=== PATIENT | female | born 1940 | race Caucasian/White ===

== ENCOUNTER 2023-12-17 19:11 | Inpatient (IN) | payer MEDICARE, OTHER ==
[~2023-12-17] VITALS: Ht 152.4 cm; Wt 59.9 kg
[2023-12-17] MEDS ORDERED: XARELTO20 MG PO (19:32)
[2023-12-17] MEDS ORDERED: OMEP20ER PO (19:33)
[2023-12-17 19:53] LABS: Source, Urine Clean Catch
[2023-12-17 19:54] LABS: BASOPHILS ABSOLUTE AUTO 0.01 K/mm3 (0.00-0.23); BASOPHILS PERCENT AUTO 0 % (0-2); EOSINOPHILS ABSOLUTE AUTO 0.02 K/mm3 (0.00-0.68); EOSINOPHILS PERCENT AUTO 0 % (0-6); Hematocrit 28.8 % (33.0-51.0); Hemoglobin 8.4 g/dL (11.5-16.0); IMMATURE GRAN ABSOLUTE AUTO 0.08 K/mm3 (0.00-0.10); IMMATURE GRAN PERCENT AUTO 1 % (0-1); LYMPHOCYTES ABSOLUTE AUTO 0.88 K/mm3 (0.84-5.20); LYMPHOCYTES PERCENT AUTO 9 % (21-46); MONOCYTES ABSOLUTE AUTO 1.32 K/mm3 (0.16-1.47); MONOCYTES PERCENT AUTO 14 % (4-13); Mean Corpuscular HGB 20.8 pg (26.0-34.0); Mean Corpuscular HGB Conc 29.2 g/dL (31.5-36.5); Mean Corpuscular Volume 71 fL (80-100); Mean Platelet Volume 10.7 fL (9.1-12.4); NEUTROPHILS ABSOLUTE AUTO 7.32 K/mm3 (1.96-9.15); NEUTROPHILS PERCENT AUTO 76 % (41-73); NRBC Auto 4.2 /100 WBC (0.0-0.2); Platelet Count 271 K/mm3 (150-400); RDW Coefficient Variation 17.1 % (11.7-14.2); Red Blood Cell Count 4.04 M/mm3 (3.80-5.20); White Blood Cell Count 9.63 K/mm3 (4.00-11.30)
[2023-12-17 19:55] LABS: Appearance, Urine Cloudy (Clear); Bilirubin, Urine Neg (Neg); Blood, Urine 2+ (Neg); Color, Urine Yellow (P-Yellow); Glucose Qualitative, Urine Neg (Neg); Ketones, Urine Neg (Neg); Leukocyte Esterase, Urine 2+ (Neg); Nitrite, Urine Neg (Neg); Protein, Urine 2+ (Neg); Specific Gravity, Urine 1.025 (1.003-1.022); Urobilinogen, Urine 1+ (Normal)
[2023-12-17] MEDS ORDERED: POTA8 PO (20:01)
[2023-12-17 20:05] LABS: Bacteria Many /hpf; White Blood Cells, Urine 25-50 /hpf (0-5)
[2023-12-17 20:06] LABS: Amorphous Light (0-Heavy); Squamous Epithelial Cells Rare /hpf (Few)
[2023-12-17 20:10] LABS: Albumin, Blood 2.5 g/dL (3.4-5.0); Albumin/Globulin Ratio 0.5 (0.8-1.8); Bilirubin, Total 3.5 mg/dL (0.1-1.0); Bun/Creatinine Ratio 24.8 (12.0-20.0); Calcium, Blood 8.3 mg/dL (8.5-10.1); Creatinine, Blood 1.13 mg/dL (0.40-1.00); Globulin, Blood 4.8 g/dL (2.2-4.0); Total Protein, Blood 7.3 g/dL (6.4-8.2)
[2023-12-17] MEDS ORDERED: CefTRIAXone Sodium 1,000 MG in NS 100 ML IV ONE (20:30)
[2023-12-17] MEDS ORDERED: NS 1,000 ML IV SCH (20:30)
[2023-12-18] VITALS (40 sets, daily range): BP systolic 91–134; BP diastolic 54–111
[2023-12-18] MEDS ORDERED: NEBI5 PO (01:36)
[2023-12-18] MEDS ORDERED: XARELTO15 MG PO (01:36)
[2023-12-18 01:37] LABS: Bilirubin, Direct 1.4 mg/dL (0.0-0.3)
[2023-12-18] MEDS ORDERED: FURO20 PO (01:37)
[2023-12-18] MEDS ORDERED: FAMO20 PO (01:37)
[2023-12-18] MEDS ORDERED: B-12500 MC2 PO (01:37)
[2023-12-18] MEDS ORDERED: POTA10T PO (01:38)
[2023-12-18] MEDS ORDERED: ERGO50000 PO (01:38)
[2023-12-18] MEDS ORDERED: Sodium Chloride 3% 500 ML IV SCH (01:45)
[2023-12-18] MEDS ORDERED: Sodium Chloride 3% 200 ML IV SCH (01:45)
[2023-12-18 02:04] LABS: Bicarbonate Venous 22.4 mmol/L (24.0-30.0); PCO2 Venous 41.6 mmHg (38-42); pH Blood Venous 7.36 (7.34-7.37)
[2023-12-18 02:28] LABS: Calcium, Blood 7.7 mg/dL (8.5-10.1); Creatinine, Blood 1.04 mg/dL (0.40-1.00); Potassium, Blood 4.6 mmol/L (3.5-5.5)
[2023-12-18] MEDS ORDERED: Ergocalciferol 50000 Intn'l Units PO SCH (03:55)
[2023-12-18] MEDS ORDERED: Famotidine 20 MG Tab PO PRN (03:55)
[2023-12-18] MEDS ORDERED: NS 500 ML IV SCH (04:00)
[2023-12-18 04:33] LABS: Bun/Creatinine Ratio 25.9 (12.0-20.0); Calcium, Blood 7.7 mg/dL (8.5-10.1); Creatinine, Blood 1.08 mg/dL (0.40-1.00); Potassium, Blood 4.8 mmol/L (3.5-5.5)
[2023-12-18] MEDS ORDERED: Azithromycin 500 MG in NS 250 ML IV SCH (05:00)
--- NOTE | 2023-12-18 06:23 | NUR ---
SHIFT SUMMARY NO ACUTE EVENTS T/O NIGHT. PT DROWSY AND A/O TO SELF AND FAMILY. FOLLOWS SIMPLE COMMANDS. PER PT'S DAUGHTER, PT IS NORMALLY A/O X 4 AND NEEDS MINIMAL ASSIST WITH CARE. 3% NS AT 30ML/HR. HELD WHILE GIVING 500ML BOLUS OF NS PER PHARM. DR LEARY CALLED REGARDING SODIUM LEVEL. ORDER TO RESTART GTT FOR ONE HOUR AND THEN STOP UNTIL LAB RESULTS ARE BACK. VSS, AFIB RATE 70-80'S. BP STABLE. ON RA. PURE WICK IN PLACE. YELLOW JOVANNY OUTPUT. DAUGHTER REMAINS AT BEDSIDE.
[2023-12-18 06:46] LABS: Bun/Creatinine Ratio 28.4 (12.0-20.0); Calcium, Blood 7.7 mg/dL (8.5-10.1); Creatinine, Blood 1.02 mg/dL (0.40-1.00); Potassium, Blood 4.6 mmol/L (3.5-5.5)
--- NOTE | 2023-12-18 07:40 | NUR ---
CARE ASSUMPTION DURING BEDSIDE SHIFT REPORT Shad ROBLES RN THE PT IS LYING IN BED SLEEPING COMFORTABLY. PT'S FAMILY AT BEDSIDE. PT'S MONITOR SHOWING AFIB 80'S-90'S. BP STABLE W MAP >65. SPO2 >94% ON RM AIR. PT APPEARS COMFORTABLE AND WAS LEFT TO SLEEP. 3% NS ON STAND-BY PER NOC RN UNTIL FURTHER INSTRUCTIONS. PT'S FAMILY DENYING ANY FURTHER NEEDS AT THIS TIME.
[2023-12-18] MEDS ORDERED: Sodium Bicarbonate 650 MG Tab PO SCH (08:00)
[2023-12-18] MEDS ORDERED: NS 1,000 ML IV SCH (08:00)
[2023-12-18] MEDS ORDERED: Carvedilol 3.125 MG Tab PO SCH (08:00)
[2023-12-18 08:16] LABS: Albumin, Blood 2.2 g/dL (3.4-5.0); Albumin/Globulin Ratio 0.5 (0.8-1.8); Bilirubin, Total 3.2 mg/dL (0.1-1.0); Bun/Creatinine Ratio 26.5 (12.0-20.0); Calcium, Blood 7.8 mg/dL (8.5-10.1); Creatinine, Blood 1.02 mg/dL (0.40-1.00); Globulin, Blood 4.5 g/dL (2.2-4.0); Potassium, Blood 4.6 mmol/L (3.5-5.5); Total Protein, Blood 6.7 g/dL (6.4-8.2)
[2023-12-18] MEDS ORDERED: Lactated Ringer's 1,000 ML IV ONE (09:20)
[2023-12-18 12:45] LABS: Albumin, Blood 2.1 g/dL (3.4-5.0); Albumin/Globulin Ratio 0.5 (0.8-1.8); Bun/Creatinine Ratio 25.9 (12.0-20.0); Calcium, Blood 7.7 mg/dL (8.5-10.1); Creatinine, Blood 1.08 mg/dL (0.40-1.00); Globulin, Blood 4.4 g/dL (2.2-4.0); Potassium, Blood 4.7 mmol/L (3.5-5.5); Total Protein, Blood 6.5 g/dL (6.4-8.2)
[2023-12-18] MEDS ORDERED: Sodium Bicarb 8.4% 1 MEQ/ML 50 ML Vial IV ONE (13:20)
[2023-12-18] MEDS ORDERED: Rivaroxaban 10 MG Tab PO SCH (18:00)
--- NOTE | 2023-12-18 18:29 | NUR ---
DAY SHIFT SUMMARY PT HAS REMAINED DROWSY AND CONFUSED THIS SHIFT BUT DID APPEAR TO BECOME MORE AWAKE T/O THE DAY. PT FOLLOWING COMMANDS BUT DOES NOT KNOW WHERE SHE IS OR WHY SHE IS HERE. PT'S MONITOR SHOWING AFIB 80'S-90'S THIS SHIFT. BP STABLE W MAP >65 THIS SHIFT. PT'S LACTIC ACID PEAKED AT 5.9 THIS AM SO PROVIDER CONTACTED AND ORDER FOR 1L LR BOLUS GIVEN. NS INFUSING AT 75ML/HR THIS SHIFT BUT DC'D LATE THIS AFTERNOON NC DR. EDWARDS AFTER LACTIC ACID CAME DOWN TO 3.5. PT RECIEVED 50 MEQ BICARB PUSH THIS SHIFT. PT AFEBRILE THIS SHIFT. PT HAD ONE INCONTINENT VOID THIS SHIFT AND 300 ML DARK JOVANNY VOID THIS SHIFT W BLADDER SCAN SHOWING 72ML AT 1830. PT MAINTAINING SPO2 >92% ON 2L NC. PT BECOMES ANXIOUS WHEN LAID FLAT APPEARING TO BECOME ORTHOPNEIC AT TIMES THO MAINTAINING SPO2 >90%. PT HAD ECHO THIS SHIFT BUT NO RESULTS IN MEDITECH. PT NPO THIS SHIFT DUE TO MENTATION THOUGH SHE WAS ABLE TO WAKE UP AND TAKE PO MEDS W/O DIFFICULTY. WILL REPORT TO ONCOMING RN.
[2023-12-18] MEDS ORDERED: CefTRIAXone Sodium 1,000 MG in NS 100 ML IV SCH (21:00)
[2023-12-18] MEDS ORDERED: Acetaminophen 500 MG Tab PO PRN (22:05)
--- NOTE | 2023-12-18 23:03 | NUR ---
ASSUMED CARE ASSUMED CARE AT 1900. PT DROWSY BUT A/O X 2. UNABLE TO STATE BUT KNOWS HER FAMILY AT BEDSIDE. FOLLOWS SIMPLE COMMANDS. REQUIRES MODERATE AMOUNT OF STIMULI TO WAKE UP FULLY. ABLE TO TAKE PO MEDS AND ATE A PUDDING PROVIDED BY DAUGHTER. NO S/S OF ASPIRATION NOTED WITH BEDSIDE SWALLOW. VSS, BP SOFT AT TIMES. AFIB RATE 60-70'S. ON 2L NC WITH SPO2 GREATER THAN 95%. TITRATED TO RA AND SPO2 GREATER THEN 92%. PUREWICK IN PLACE. FAMILY AT BEDSIDE.
[2023-12-19] VITALS (40 sets, daily range): BP systolic 73–118; BP diastolic 41–86
[2023-12-19 03:46] LABS: Bun/Creatinine Ratio 27.5 (12.0-20.0); Calcium, Blood 7.9 mg/dL (8.5-10.1); Creatinine, Blood 1.02 mg/dL (0.40-1.00); Potassium, Blood 4.3 mmol/L (3.5-5.5)
--- NOTE | 2023-12-19 05:45 | NUR ---
SHIFT SUMMARY NO ACUTE EVENTS T/O NIGHT. PT DROWSY BUT AWAKENS TO VERBAL STIMULI. VSS. SPO2 DOWN TO 85% WHEN ASLEEP ON RIGHT SIDE ON RA. 2L VIA NC IN PLACE. DAUGHTER REMAINS AT BEDSIDE. PUREWICK IN PLACE. CALL LIGHT IN REACH. CALL LIGHT IN REACH.
[2023-12-19] MEDS ORDERED: Metoprolol Succinate 25 MG TABCR PO SCH (09:00)
[2023-12-19] MEDS ORDERED: NS 1,000 ML IV ONE ×2 (10:50)
--- NOTE | 2023-12-19 11:16 | NUR ---
PROVIDER CONTACT PT BECOMING INCREASINGLY HYPOTENSIVE SO CALLED AND NOTIFIED OF CHANGE. 1L NS BOLUS ORDERED STAT.
[2023-12-19] MEDS ORDERED: Midodrine 5 MG Tab PO SCH (12:05)
--- NOTE | 2023-12-19 14:31 | NUR ---
[id number] SHIFT SUMMARY PT BEGAN SHIFT VERY LETHARGIC AND CONFUSED. PT'S SKIN COLD W POOR CAP REFILL AND HER BP TRENDING DOWN THIS SHIFT SO PROVIDER CONTACTED AND 1L NS BOLUS WELL MIDODRINE STARTED WHICH IMPROVED PT'S BP AND OVERALL MENTATION. PT MUCH MORE ALERT THIS AFTERNOON AND IS NOW TOLERATING PO INTAKE. PT'S MONITOR SHOWING AFIB 60'S-70'S THIS SHIFT. SPO2 >92% ON RM AIR. PT AFEBRILE. PT W 300 ML JOVANNY URINE OUTPUT THIS SHIFT. WHILE PT'S BP WAS LOW PALLIATIVE CARE MET W FAMILY DISCUSSING THE PT'S CONDITION, AT THIS TIME THE PT'S DAUGHTER JYOTI REQUESTING THAT THE PT BE MADE DNR CODE STATUS, THIS WAS RELAYED TO DR. EDWARDS AND PT'S CODE STATUS CHANGED TO DNR. DR. GOMEZ CONSULTED THIS SHIFT BY DR. EDWARDS. DR. GOMEZ GIVING ORDERS FOR 1L FLUID RESTRICTION AND REPEAT LABS. PTMADE PCU STATUS AND WILL BE TRANSFERED TO PCU 20 WHEN THE RM IS CLEAN. WILL REPORT TO RECIEVING BALDEMAR Ramos RN.
--- NOTE | 2023-12-19 15:34 | NUR ---
Case Conference: Met with family members at bedside this morning; specifically pt's daughter Ivy and pt's brother. Ivy spoke to several family members by phone, and decision was made to change pt's code status from FULL to DNR.
--- NOTE | 2023-12-19 16:36 | NUR ---
FAMILY CONTACT THIS RN AND [employer]ER JULIO CÉSAR Mcdowell SPOKE TO THE PT'S SON BRANDIE ON THE PHONE REGARDING HIS CONCERNS W INFORMATION THAT WAS RELAYED TO HIM TODAY BY FAMILY ABOUT THE PT'S CARE AND HIS CONCERNS ABOUT DR. EDWARDS. THIS RN EXPLAINED HOW THE PT'S CLINICAL CONDITION CHANGED RAPIDLY THIS SHIFT AND WHY PALLIATIVE CARE WAS CONSULTED RESULTING IN THE PT'S CODE STATUS CHANGING TO A DNR. BRANDIE WAS UPDATED ON FURTHER TREATMENT PLAN AND HE THANKED US FOR THE UPDATES BUT DOES WANT A NEW PROVIDER ON THE PT'S CASE. PT'S DAUGHTER JYOTI GIVEN PRINTED INFORMATION ON HEART FAILURE, COREG, MIDODRINE, HYPOTENSION AND UROSEPSIS TO HELP PROVIDE EDUCATION ON SOME OF THE TOPICS THEY HAD QUESTIONS WITH. PT'S FAMILY EXPRESSING GRATITUDE FOR INFORMATION AND CARE. DR. CAMPBELL CALLED AND INFORMED OF PT'S FAMILYS DESIRE FOR NEW PROVIDER.
--- NOTE | 2023-12-19 18:18 | NUR ---
SHIFT SUMMARY/PT ARRVIAL... PT ARRIVED TO THE UNIT APROX 1700. PT'S VS STABLE. PT'S FAMILY AT THE BEDSIDE. THE PT WAS SLEEPY AND RELAXED. REPORT FROM NATHAN MCDERMOTT PRIOR TO PT TRANSFER TO PCU. CALL LIGHT IN REACH WILL CONTINUE TO MONITOR UNTIL REPORT IS GIVEN TO ONCOMING RN.
[2023-12-19] MEDS ORDERED: Ondansetron HCl 2 MG / ML 2ML Vial IV PRN (18:45)
[2023-12-19 19:04] LABS: Albumin, Blood 2.2 g/dL (3.4-5.0); Anion Gap 9 mmol/L (3-11); Blood Urea Nitrogen 27 mg/dL (8-24); CO2, Blood 26 mmol/L (21-32); Calcium, Blood 8.5 mg/dL (8.5-10.1); Chloride, Blood 97 mmol/L (98-108); Glomerular Filtration Rate 56 (60-); Glucose, Blood 97 mg/dL (70-99); Phosphorus, Blood 2.8 mg/dL (2.5-4.9); Potassium, Blood 4.2 mmol/L (3.5-5.5); Sodium, Blood 128 mmol/L (136-145)
[2023-12-19 19:55] LABS: Osmolality, Serum 271 mos/KG (275-300)
[2023-12-19] MEDS ORDERED: Sodium Chloride 1 GM TAB PO SCH (21:00)
[2023-12-20 03:46] VITALS: BP 100/70
--- NOTE | 2023-12-20 03:55 | NUR ---
Shift summary- Amaya had an uneventful night. She started the shift with some mild nausea when trying to eat some soup and was given IV zofran. This helped. When labs were checked she was started on PO Sodium tablets which activated her nausea again, but it quickly subsided without the use of any antiemetics. She rested throughout the whole night, and used the purwick during the night with fair output. Fluid restriction was maintained during shift- as she was not intaking much due to her ongoing nausea and fatigue. Daughter stayed overnight in room to ease patients' anxiety and unfamiliar situation. Patient only oriented to self when asked orientation questions, unsure of where she was, what month it was, or who the president is currently.
[2023-12-20 04:06] LABS: Hematocrit 32.1 % (33.0-51.0); Hemoglobin 8.8 g/dL (11.5-16.0)
[2023-12-20 04:31] LABS: Albumin, Blood 2.1 g/dL (3.4-5.0); Anion Gap 13 mmol/L (3-11); Blood Urea Nitrogen 26 mg/dL (8-24); Bun/Creatinine Ratio 26.9 (12.0-20.0); CO2, Blood 21 mmol/L (21-32); Chloride, Blood 98 mmol/L (98-108); Creatinine, Blood 0.97 mg/dL (0.40-1.00); Glomerular Filtration Rate 58 (60-); Glucose, Blood 78 mg/dL (70-99); Magnesium, Blood 2.2 mg/dL (1.6-2.4); Phosphorus, Blood 2.7 mg/dL (2.5-4.9); Potassium, Blood 4.3 mmol/L (3.5-5.5); Sodium, Blood 128 mmol/L (136-145); Thyroid Stimulating Hormone 0.267 uIU/mL (0.360-4.800); Uric Acid, Blood 6.9 mg/dL (2.6-6.0)
[2023-12-20 07:33] VITALS: BP 118/67
--- NOTE | 2023-12-20 07:50 | NUR ---
Bedside report from Anahi MCDERMOTT and resident RN. Pt's Daughter Elise and son Papito are at the bedside. Pt awakens easily, able to state that she is in the hospital, and recognizes her family, but states the year is 19--. When prompted for the year "20..." she cannot complete it correctly. She appears sleepy, frail. Daughter states that she did not have good appetite, possibly due to the severe nausea and vomiting she had before the admission. NOc shift reports medicating the pt for nausea last night with relief. Pt does not have any complaints of pain or nausea this morning. Noted some swelling of her left arm, right hand, and pitting edema bilaterally of lower legs. Fine crackles heard on the right side of lungs, posteriorly. Daughter states Dr. Slaughter was here this morning. Noted new order for Lasix increased to 20 mg BID. Pt does not appear to have any respiratory distress, although she is tachypneic at 22 /min. Otherwise V/S are stable.
[2023-12-20] MEDS ORDERED: Furosemide 10 MG / ML 2ML Vial IV SCH ×2 (09:00)
[2023-12-20] MEDS ORDERED: Potassium Chloride 10 Meq Tablet SA PO SCH ×2 (09:00)
[2023-12-20] MEDS ORDERED: Furosemide 20 MG Tab PO SCH (09:00)
[2023-12-20] MEDS ORDERED: Azithromycin 500 MG in NS 250 ML IV SCH (09:00)
[2023-12-20 12:41] VITALS: BP 120/74
--- NOTE | 2023-12-20 14:10 | NUR ---
Pt is sitting up in bed, ate a few bites of food, per daughter Elise. Elise states "she is mad at me because I made her eat". Pt alert, oriented x 2. Pt does not give any reason for not wanting to eat. Elise states pt does not have nausea/vomiting. Pt appears to be uninvolved in conversation,except when responding to direct questions and following directions cooperatively. Medical records requested from [facility], by fax.
[2023-12-20 15:30] VITALS: BP 123/69
[2023-12-20] MEDS ORDERED: Darbepoetin Alfa in Polysorbat 25 MCG/0.42 ML Syringe SC SCH (16:00)
[2023-12-20 16:45] LABS: Potassium, Blood 3.9 mmol/L (3.5-5.5)
--- NOTE | 2023-12-20 18:09 | NUR ---
Call to Dr. Slaughter the results of NA and K blood levels. No new orders receivded.
[2023-12-20 21:07] VITALS: BP 128/72
[2023-12-20 23:19] VITALS: BP 112/61
[2023-12-21] VITALS (8 sets, daily range): BP systolic 97–128; BP diastolic 52–85
--- NOTE | 2023-12-21 05:04 | NUR ---
Shift Summary- Amaya had a relatively good night. She was able to swallow all of her medications this evening- including her xarelto from the previous shift. Unfortunately the purwick was not properly attached from the previous shift and Amaya was left saturated in urine so a large amount of urine was un-accounted for. Once the purwick was re-attached and resumed properly, great output was accounted for. Amaya was given a bed bath and full linen change in the evening and rested comfortably the remainder of the night. Vitals stable throughout. No episodes of nausea noted throughout.
[2023-12-21 05:06] LABS: BASOPHILS ABSOLUTE AUTO 0.04 K/mm3 (0.00-0.23); BASOPHILS PERCENT AUTO 0 % (0-2); EOSINOPHILS ABSOLUTE AUTO 0.11 K/mm3 (0.00-0.68); EOSINOPHILS PERCENT AUTO 1 % (0-6); Hemoglobin 10.2 g/dL (11.5-16.0); IMMATURE GRAN ABSOLUTE AUTO 0.11 K/mm3 (0.00-0.10); IMMATURE GRAN PERCENT AUTO 1 % (0-1); LYMPHOCYTES ABSOLUTE AUTO 1.67 K/mm3 (0.84-5.20); LYMPHOCYTES PERCENT AUTO 18 % (21-46); MONOCYTES ABSOLUTE AUTO 1.54 K/mm3 (0.16-1.47); MONOCYTES PERCENT AUTO 17 % (4-13); Mean Corpuscular HGB 20.7 pg (26.0-34.0); Mean Corpuscular HGB Conc 29.1 g/dL (31.5-36.5); Mean Corpuscular Volume 71 fL (80-100); Mean Platelet Volume 9.7 fL (9.1-12.4); NEUTROPHILS ABSOLUTE AUTO 5.61 K/mm3 (1.96-9.15); NEUTROPHILS PERCENT AUTO 62 % (41-73); NRBC ABSOLUTE 0.41 K/mm3 (0.00-0.02); NRBC Auto 4.5 /100 WBC (0.0-0.2); Platelet Count 279 K/mm3 (150-400); RDW Coefficient Variation 17.2 % (11.7-14.2); Red Blood Cell Count 4.93 M/mm3 (3.80-5.20); White Blood Cell Count 9.08 K/mm3 (4.00-11.30)
[2023-12-21 05:40] LABS: Albumin, Blood 2.2 g/dL (3.4-5.0); Albumin/Globulin Ratio 0.5 (0.8-1.8); Bilirubin, Total 1.5 mg/dL (0.1-1.0); Bun/Creatinine Ratio 24.3 (12.0-20.0); Calcium, Blood 8.3 mg/dL (8.5-10.1); Creatinine, Blood 1.07 mg/dL (0.40-1.00); Globulin, Blood 4.7 g/dL (2.2-4.0); Magnesium, Blood 2.1 mg/dL (1.6-2.4); Phosphorus, Blood 3.5 mg/dL (2.5-4.9); Potassium, Blood 3.6 mmol/L (3.5-5.5); Total Protein, Blood 6.9 g/dL (6.4-8.2)
[2023-12-21] MEDS ORDERED: Ergocalciferol 50000 Intn'l Units PO SCH (09:00)
--- NOTE | 2023-12-21 09:33 | NUR ---
Pt was alert at time of bedside report; oriented to person, place, and family. Refusing to eat breakfast. appears sleepy, weak.
--- NOTE | 2023-12-21 09:56 | NUR ---
Pt took oral meds with Nepro. Call to [facility] to follow up on records request which was faxed yesterday.
--- NOTE | 2023-12-21 11:25 | NUR ---
11:00 VITALS RECORDED DIRECTLY AFTER PHYSICAL THERAPY EVAL, PT RETURNED TO LYING POSITION, PT HYPOTENSIVE AND REPORTED DIZZYNESS WHILE SITTING, BUT RESOLVED ONCE LYING. COMPRESSION SOCKS APPLIED TO BLE.
--- NOTE | 2023-12-21 14:36 | NUR ---
Pt was awakened for 1400 meds. She is very quiet, slow to respond, very weak. Struggles to drink from a small cup and to last picker pills from the cup. Family at bedside.
[2023-12-21] MEDS ORDERED: CefTRIAXone 1000 MG Vial ONE (20:51)
[2023-12-21] MEDS ORDERED: NS 100 ML IV ONE (20:51)
[2023-12-22 05:13] LABS: Bun/Creatinine Ratio 21.1 (12.0-20.0); Calcium, Blood 8.3 mg/dL (8.5-10.1); Creatinine, Blood 0.95 mg/dL (0.40-1.00); Potassium, Blood 3.2 mmol/L (3.5-5.5)
[2023-12-22 05:20] VITALS: BP 114/69
--- NOTE | 2023-12-22 05:28 | NUR ---
Shift summary- Nan much more alert this shift. Able to join in on coversation, express her needs and wants. She did not want to take her Midodrine medication this evening, but her family member spoke to her, and when this RN circled back around, Amaya agreed to taking the medication. She stayed on 1L of oxygen all throughout the night. Maintained good urine output with the purwick. At shift change the purwick was not properly hooked up and Amaya was incontinent of urine- this caused for one incontinent episode- otherwise all urine output was accounted for and measured. Amaya states she is breathing better, and edema on legs is much improved with the tedhose.
[2023-12-22] MEDS ORDERED: Potassium Chloride 20 MEQ TabCR PO ONE (09:00)
[2023-12-22] MEDS ORDERED: Furosemide 10 MG / ML 2ML Vial IV SCH (09:00)
[2023-12-22 09:03] VITALS: BP 125/73
--- NOTE | 2023-12-22 09:54 | NUR ---
The pt is much more alert today, and more conversant. She is having some confusion. Son at bedside that this is like what she has been having intermittently as of late. She is definitely much brighter than she has been the past 2 days, and the son concurrs. She had a better appetite today, but with new dentures she is saying that "I'm not sure why I can't eat" and seems confused by the new sensation of eating solid food with dentures. She has just got them within the last 2 weeks. She is taking medications with ensure and chocolate pudding without difficulty. Lung sounds are clear today, bowel tones active, and peripher edema seems slightly improved.
[2023-12-22] MEDS ORDERED: Sacubitril/Valsartan 24 MG-26 MG Tab PO SCH (11:00)
--- NOTE | 2023-12-22 11:45 | NUR ---
OOB TO CHAIR during PT session. Lift sheet under pt in recliner as needed for transfer back to bed later. Daughter Elise and brother Octaviano at the bedside.
[2023-12-22 13:32] VITALS: BP 92/70
[2023-12-22 16:19] VITALS: BP 119/95
--- NOTE | 2023-12-22 16:19 | NUR ---
Amaya continues to make small improvements; she currently has a SNF recommendation, and family is planning on her completing rehab locally before returning home to [place]. The patient is [place], and appears confused during our visit today. However, her health has improved since she was initially hospitalized, and the family is hopeful that she will be able to travel home to [place].
--- NOTE | 2023-12-22 16:53 | NUR ---
Telephone report given to BALDEMAR Marie. pt transferred from the recliner chair to the bed, using sling lift. Attends were checked, pericare given, and purewick changed. Family accompanied us to transfer the pt to room 309.
--- NOTE | 2023-12-22 16:58 | NUR ---
PATIENT AND FAMILY TO ROOM, PATIENT RESTING, RESPS EVEN AND NON LABORED, DAUGHTER TO STAY THE NIGHT, HELPFUL WITH CARE, BEDALARM ON
[2023-12-22] MEDS ORDERED: NS 100 ML IV ONE (19:21)
[2023-12-22] MEDS ORDERED: CefTRIAXone 1000 MG Vial ONE (19:22)
[2023-12-22 20:56] VITALS: BP 103/70
[2023-12-22] MEDS ORDERED: NS 250 ML IV PRN (22:35)
--- NOTE | 2023-12-23 04:27 | NUR ---
SHIFT SUMMARY PATIENT HAD NO ACUTE CHANGES. AXOX 2 SELF AND FAMILY. [place] AND BEDREST WITH CONFUSION. PIVS INTACT. IV ABX INFUSED. PUREWICK IN PLACE. DENIES CHEST PAIN, SOB, AND N/V. VSS/AFEBRILE. SON STAYED OVERNIGHT. CALL LIGHT IN REACH. BED IN LOWEST POSITION AND ALARM ACTIVATED. WILL CONTINUE TO MONITOR UNTIL DAY SHIFT NURSE ASSUMES CARE.
[2023-12-23 04:36] VITALS: BP 98/77
[2023-12-23 05:15] LABS: BASOPHILS ABSOLUTE AUTO 0.04 K/mm3 (0.00-0.23); BASOPHILS PERCENT AUTO 0 % (0-2); EOSINOPHILS ABSOLUTE AUTO 0.07 K/mm3 (0.00-0.68); EOSINOPHILS PERCENT AUTO 1 % (0-6); Hematocrit 39.4 % (33.0-51.0); Hemoglobin 10.8 g/dL (11.5-16.0); IMMATURE GRAN ABSOLUTE AUTO 0.07 K/mm3 (0.00-0.10); IMMATURE GRAN PERCENT AUTO 1 % (0-1); LYMPHOCYTES ABSOLUTE AUTO 2.23 K/mm3 (0.84-5.20); LYMPHOCYTES PERCENT AUTO 24 % (21-46); MONOCYTES ABSOLUTE AUTO 1.76 K/mm3 (0.16-1.47); MONOCYTES PERCENT AUTO 19 % (4-13); Mean Corpuscular HGB 20.2 pg (26.0-34.0); Mean Corpuscular HGB Conc 27.4 g/dL (31.5-36.5); Mean Corpuscular Volume 74 fL (80-100); Mean Platelet Volume 9.8 fL (9.1-12.4); NEUTROPHILS ABSOLUTE AUTO 4.99 K/mm3 (1.96-9.15); NEUTROPHILS PERCENT AUTO 55 % (41-73); NRBC ABSOLUTE 0.24 K/mm3 (0.00-0.02); NRBC Auto 2.6 /100 WBC (0.0-0.2); Platelet Count 343 K/mm3 (150-400); RDW Standard Deviation 45.4 fL (35.1-46.3); Red Blood Cell Count 5.34 M/mm3 (3.80-5.20); White Blood Cell Count 9.16 K/mm3 (4.00-11.30)
[2023-12-23 05:34] LABS: Albumin, Blood 2.1 g/dL (3.4-5.0); Anion Gap 11 mmol/L (3-11); Blood Urea Nitrogen 20 mg/dL (8-24); CO2, Blood 32 mmol/L (21-32); Calcium, Blood 8.6 mg/dL (8.5-10.1); Chloride, Blood 95 mmol/L (98-108); Glomerular Filtration Rate 56 (60-); Glucose, Blood 130 mg/dL (70-99); Phosphorus, Blood 2.1 mg/dL (2.5-4.9); Potassium, Blood 3.5 mmol/L (3.5-5.5); Sodium, Blood 134 mmol/L (136-145)
[2023-12-23] MEDS ORDERED: NS IV STA (06:12)
[2023-12-23] MEDS ORDERED: POTASSIUM PHOSPHATE DIBASIC IV STA (06:12)
[2023-12-23 06:32] LABS: BASOPHILS PERCENT MAN 0 % (0-2); EOSINOPHILS ABSOLUTE MAN 0.18 K/mm3 (0.00-0.68); EOSINOPHILS PERCENT MAN 2 % (0-6); LYMPHOCYTES ABSOLUTE MAN 2.56 K/mm3 (0.84-5.20); LYMPHOCYTES PERCENT MAN 28 % (21-46); MONOCYTES ABSOLUTE MAN 1.09 K/mm3 (0.16-1.47); MONOCYTES PERCENT MAN 12 % (4-13); NEUTROPHILS ABSOLUTE MAN 5.31 K/mm3 (1.96-9.15); SEG NEUTROPHILS PERCENT MAN 58 % (41-73); TOTAL CELLS COUNTED 100
[2023-12-23 07:58] VITALS: BP 115/66
[2023-12-23] MEDS ORDERED: Furosemide 10 MG/ML 4ML Vial IV SCH (09:00)
[2023-12-23] MEDS ORDERED: Potassium Chloride 10 Meq Tablet SA PO SCH (09:00)
[2023-12-23] MEDS ORDERED: Spironolactone 12.5 MG TAB PO SCH (09:00)
--- NOTE | 2023-12-23 10:42 | NUR ---
FAMILY AT BEDSIDE, PATIENT WORKED WITH PT TODAY, OOB IN CHAIR, SWALLOW MEDS ONE AT A TIME, OREINTED TO SELF AND FAMILY
[2023-12-23 16:10] VITALS: BP 109/87
--- NOTE | 2023-12-23 18:00 | NUR ---
NO ACUTE CHANGES, HEEL PROTECTORS ON, NO PERIWIK THROUGH THE DAY, FAMILY AT BEDSIDE, HELPFUL WITH CARE, REPOSITIONED EVERY 2 HOURS, ORIENTED TO SELF AND FAMILY, BED ALARM ON, CALL LIGHT WITH IN REACH, WILL RELAY TO PM RN
[2023-12-23] MEDS ORDERED: NS 100 ML IV ONE ×2 (20:45→21:24)
[2023-12-23] MEDS ORDERED: CefTRIAXone 1000 MG Vial ONE ×2 (20:45→21:24)
[2023-12-23 20:53] VITALS: BP 109/68
[2023-12-23] MEDS ORDERED: NS 250 ML IV PRN (21:35)
[2023-12-23] MEDS ORDERED: Famotidine 20 MG Tab PO PRN (22:10)
[2023-12-24 04:04] VITALS: BP 120/71
[2023-12-24 04:24] LABS: Hematocrit 33.6 % (33.0-51.0); Hemoglobin 9.4 g/dL (11.5-16.0)
[2023-12-24 04:54] LABS: Albumin/Globulin Ratio 0.4 (0.8-1.8); Bilirubin, Total 0.8 mg/dL (0.1-1.0); Bun/Creatinine Ratio 18.5 (12.0-20.0); Calcium, Blood 8.4 mg/dL (8.5-10.1); Creatinine, Blood 1.3 mg/dL (0.40-1.00); Globulin, Blood 4.5 g/dL (2.2-4.0); Phosphorus, Blood 2.5 mg/dL (2.5-4.9); Potassium, Blood 3.7 mmol/L (3.5-5.5); Total Protein, Blood 6.5 g/dL (6.4-8.2)
--- NOTE | 2023-12-24 06:30 | NUR ---
PROCESS COORDINATOR SUMMARY NO ACUTE CHANGES. PT FAMILY AT BEDSIDE T/O THE NIGHT. PT A/OX2; PT IS [place] AND SLOW TO RESPOND. Q2 ROUNDING COMPLETE W/REPOSITIONING AND ASSESSING ALL NEEDS. FAMILY REPORTING INCREASED APPETITE AND ALERTNESS. PT SLEPT INTERMITTANTLY. CALL LIGHT ACCESSIBLE.
[2023-12-24 07:50] VITALS: BP 122/80
[2023-12-24] MEDS ORDERED: Furosemide 40 MG Tab PO SCH (09:00)
[2023-12-24] MEDS ORDERED: Potassium Chloride 10 Meq Tablet SA PO SCH (09:00)
[2023-12-24] MEDS ORDERED: Sacubitril/Valsartan 24 MG-26 MG Tab PO SCH (09:00)
[2023-12-24] MEDS ORDERED: Furosemide 20 MG Tab PO SCH (09:00)
[2023-12-24 09:47] LABS: SARS-Cov-2 (COVID-19) PCR, MMC NEGATIVE (NEGATIVE)
[2023-12-24] MEDS ORDERED: METO25ER PO (11:00)
[2023-12-24] MEDS ORDERED: ACET500 PO (11:06)
[2023-12-24] MEDS ORDERED: MIDO5 PO (11:07)
[2023-12-24] MEDS ORDERED: ALDACTONE25 MG PO (11:08)
[2023-12-24] MEDS ORDERED: ENTRESTO 24 MG1 EACH PO (11:08)
== END 2023-12-24 13:50 | DRG 871 ==
LOC: ER 19:11 → ERHOLD 19:12 → ICUE 19:12 → PCU 12-18 10:38 → ICUE 12-18 19:27 → PCU 12-19 17:06 → MEDS 12-22 16:42 → ENPENDDIS 12-24 10:04 → MEDS 12-24 13:50
PROVIDERS: Internal Medicine; Internal Medicine Nephrology; Physician Assistant; ADMIT Family Medicine
DX: A41.9 Sepsis, unspecified organism (principal); G92.8 Other toxic encephalopathy; R65.21 Severe sepsis with septic shock; I50.23 Acute on chronic systolic (congestive) heart failure; E87.1 Hypo-osmolality and hyponatremia; N39.0 Urinary tract infection, site not specified; N17.9 Acute kidney failure, unspecified; I48.20 Chronic atrial fibrillation, unspecified; Z66 Do not resuscitate; K21.9 Gastro-esophageal reflux disease without esophagitis; K76.1 Chronic passive congestion of liver; E87.6 Hypokalemia; E83.39 Other disorders of phosphorus metabolism; K82.8 Other specified diseases of gallbladder; D63.1 Anemia in chronic kidney disease; N18.9 Chronic kidney disease, unspecified; Z79.01 Long term (current) use of anticoagulants; Z79.2 Long term (current) use of antibiotics; Z79.899 Other long term (current) drug therapy; Z88.8 Allergy status to other drugs, medicaments and biological substances
CPT/HCPCS: 36415; 71045; 71250; 74177; 76705; 76770; 80048; 80053; 80069; 81001; 82248; 82533; 82803; 82947; 83605; 83690; 83735; 83930; 84100; 84132; 84145; 84295; 84443; 84550; 85014; 85018; 85025; 87040; 87086; 93308; 93321; 94760; 94762; 96361; 96365-59; 96367; 97110; 97162; 97530; 99285-25; A9270; C8929; G0378; J0456; J0696; J0881; J1940; J2405; J7030; J7040; J7050; J7120; P9612; Q9957; Q9967; U0002